=== PATIENT | female | born 1985 | race Caucasian/White ===

== ENCOUNTER → 2018-01-28 | Outpatient (CLI) | payer OTHER ==
--- NOTE | 2018-01-28 15:59 | Diagnostic Imaging Report ---
INDICATION: Chronic bilateral hand pain. COMPARISON: None. FINDINGS: Multiple radiographic views of the bilateral hands show no fractures, dislocations, or other acute bony abnormalities identified. Joint spaces are well maintained throughout. The soft tissues appear unremarkable. No radiopaque foreign bodies are identified. IMPRESSION: Unremarkable radiographic exam of the bilateral hands. Dictated by: Dictated on workstation # [id number]
== END ==
LOC: RAD 14:00
PROVIDERS: ATTEND Internal Medicine
DX: G89.29 Other chronic pain (principal); M79.642 Pain in left hand; M79.641 Pain in right hand